=== PATIENT | female | born 1960 | race African-American/Black ===

== ENCOUNTER 2019-03-26 02:48 | Emergency (ER) | payer SELFPAY ==
[2019-03-26 03:09] VITALS: BMI 31.3
--- NOTE | 2019-03-26 03:38 | PDOC ---
History of Present Illness - General Chief Complaint: Headache Stated Complaint: HEADACHE,TREMBLING Time Seen by Provider: 03/26/19 03:38 History Source: Patient Exam Limitations: No Limitations - History of Present Illness Initial Comments: 58 year old female with no PMH presented to ED for headache x6 days. Pt reported her headache is left sided, intermittent, pounding, no alleviating or aggravating factors. She reported no light or sound sensitivity, denied neck pain, neck stiffness, fever, vomiting, nausea, chest pain, abdominal pain, shortness of breath, weakness, numbness, tingling, gait or visual changes. She reported she has not taken any pain medication for her headache. She reported she has not seen a PCP in 3 years as she does not have health insurance. ROS General: admitted to [facility]. denied fever, chills. HEENT: denied sore throat, rhinorrhea, ear pain. Cardiovascular: denied chest pain, palpitations, syncope, diaphoresis. Respiratory: denied shortness of breath, cough, sputum production, hemoptysis. Gastrointestinal: denied abdominal pain, nausea, vomiting, diarrhea, constipation, blood in stool. Genitourinary: denied dysuria, increased urinary frequency, hematuria, urinary incontinence, flank pain. Back: denied back pain. Musculoskeletal: denied joint pain, muscle pain, joint swelling. Neurological: admitted to headache. denied dizziness, numbness, tingling, weakness. Integumentary: denied rash, laceration, abrasion. Hematologic/Lymphatic: denied bruising or bleeding. PE Constitutional: Well-nourished, Well-developed, appearing stated age. HEENT: head is normocephalic, atraumatic. EOMI. PERRLA. Neck: supple. Full ROM. Cardiovascular: regular heart rhythm. no murmurs. no pericardial friction rub. Respiratory: clear to auscultation bilaterally. no crackles, rhonchi or wheezing. no stridor. Gastrointestinal: soft, nontender. normal bowel sounds. no rebound, guarding, masses. Extremities: peripheral pulses intact. no lower extremity edema. Neurological: alert. oriented x3. CN2-12 intact. 5/5 strength all extremities. normal ankle plantar flexion. full sensation all extremities and bilateral face. no ataxia. gait normal. Psych: awake, alert, oriented x3. follows commands. answers questions appropriately. Past History - Past Medical History Allergies/Adverse Reactions: Allergies Allergy/AdvReac Type Severity Reaction Status Date / Time No Known Allergies Allergy Verified 03/26/19 03:53 Home Medications: Ambulatory Orders Cephalexin Monohydrate [Keflex -] 500 mg PO BID 7 Days #14 capsule 03/26/19 - Psycho Social/Smoking Cessation Hx Smoking History: Never smoked Have you smoked in the past 12 months: No Information on smoking cessation initiated: No Hx Alcohol Use: No Drug/Substance Use Hx: No *Physical Exam - Vital Signs Last Vital Signs Temp Pulse Resp BP Pulse Ox 98.5 F 92 H 18 150/96 99 03/26/19 03:08 03/26/19 03:08 03/26/19 03:08 03/26/19 03:08 03/26/19 03:08 ED Treatment Course - LABORATORY CBC & Chemistry Diagram: 03/26/19 04:00 03/26/19 04:00 Medical Decision Making - Medical Decision Making 58 year old female with above PMH presented to ED for headache x6 days. Initial Vital Signs Temp Pulse Resp BP Pulse Ox 98.5 F 92 H 18 150/96 99 03/26/19 03:08 03/26/19 03:08 03/26/19 03:08 03/26/19 03:08 03/26/19 03:08 Afebrile. No tachycardia. No tachypnea. Hypertensive. No hypoxia on room air. Labs ordered: CBC, CMP, troponin, BNP, UA Imaging ordered: CT head Medications ordered: tylenol IV, reglan 10 mg IV once, normal saline bolus 1000 cc once Headache may be secondary to HTN, or headache may be causing HTN. Pt has not seen PCP in three years, may have developed HTN. 03/26/19 04:32 Dr. Cadena, radiologist from [facility], called to report normal head CT. 03/26/19 05:05 CT head report: Referring Physician: ANGEL NOBLE ADDENDUM Comments: John Cadena MD wrote on Mar 26, 2019 at 04:35 AM: Referring Physician: ANGEL SOSA This finding was verbally communicated to Dr. Catrina Valdes, doctor on ThuMarch 26 2019 04:32:57 EST. One or more of the following dose reduction techniques were used: automated exposure control, adjustment of the mA and/or kV according to patient size, use of iterative reconstructive technique. THIS DOCUMENT HAS BEEN ELECTRONICALLY SIGNED Cal Cadena MD 03/26/2019 04:33 FARHAT Lomas Please call Imaging Test Inspection Engineer [phone] with questions. John Cadena MD Comments: John Cadena MD wrote on Mar 26, 2019 at 04:26 AM: Referring Physician: ANGEL NOBLE Patient Name: JEFFREY SOSA THIS IS A PRELIMINARY REPORT FROM [facility] DATE OF SERVICE: 2019-03-26 04:06:30 IMAGES: [id number] EXAM: HEAD CT (STROKE) HISTORY: Left-sided headache COMPARISON: None. FINDINGS: The ventricular system is midline and nondilated. The sulcal pattern is normal for the patient's age. There is no bleed, mass, extra-axial fluid collection or mass effect. No skull fracture or skull lesion is identified. The visualized paranasal sinuses and mastoid air cells are clear. IMPRESSION: Normal exam. One or more of the following dose reduction techniques were used: automated exposure control, adjustment of the mA and/or kV according to patient size, use of iterative reconstructive technique THIS DOCUMENT HAS BEEN ELECTRONICALLY SIGNED Cal Cadena MD 03/26/2019 04:25 FARHAT Lomas Please call Imaging Test Inspection Engineer [phone] with questions. John Cadena MD Clinicians - Please contact Imaging Test Inspection Engineer with further questions at [phone] Patients - Please contact your Ordering Provider with questions. Laboratory Last Values WBC 5.6 K/mm3 (4.0-10.0) 03/26/19 04:00 RBC 4.97 M/mm3 (3.60-5.2) 03/26/19 04:00 Hgb 15.2 GM/dL (10.7-15.3) 03/26/19 04:00 Hct 45.3 % (32.4-45.2) H 03/26/19 04:00 MCV 91.2 fl (80-96) 03/26/19 04:00 MCH 30.6 pg (25.7-33.7) 03/26/19 04:00 MCHC 33.6 g/dl (32.0-36.0) 03/26/19 04:00 RDW 13.7 % (11.6-15.6) 03/26/19 04:00 Plt Count 252 K/MM3 (134-434) 03/26/19 04:00 MPV 8.0 fl (7.5-11.1) 03/26/19 04:00 Absolute Neuts (auto) 2.5 K/mm3 (1.5-8.0) 03/26/19 04:00 Neutrophils % 44.0 % (42.8-82.8) 03/26/19 04:00 Lymphocytes % 46.8 % (8-40) H 03/26/19 04:00 Monocytes % 6.1 % (3.8-10.2) 03/26/19 04:00 Eosinophils % 2.4 % (0-4.5) 03/26/19 04:00 Basophils % 0.7 % (0-2.0) 03/26/19 04:00 Nucleated RBC % 0 % (0-0) 03/26/19 04:00 Sodium 143 mmol/L (136-145) 03/26/19 04:00 Potassium 4.0 mmol/L (3.5-5.1) 03/26/19 04:00 Chloride 107 mmol/L (98-107) 03/26/19 04:00 Carbon Dioxide 28 mmol/L (21-32) 03/26/19 04:00 Anion Gap 9 MMOL/L (8-16) 03/26/19 04:00 BUN 8.2 mg/dL (7-18) 03/26/19 04:00 Creatinine 0.9 mg/dL (0.55-1.3) 03/26/19 04:00 Est GFR (CKD-EPI)AfAm 80.55 03/26/19 04:00 Est GFR (CKD-EPI)NonAf 69.50 03/26/19 04:00 Random Glucose 115 mg/dL (74-106) H 03/26/19 04:00 Calcium 9.3 mg/dL (8.5-10.1) 03/26/19 04:00 Total Bilirubin 0.4 mg/dL (0.2-1) 03/26/19 04:00 AST 18 U/L (15-37) 03/26/19 04:00 ALT 25 U/L (13-61) 03/26/19 04:00 Alkaline Phosphatase 93 U/L (45-117) 03/26/19 04:00 B-Natriuretic Peptide 25.4 pg/ml (5-125) 03/26/19 04:00 Total Protein 8.0 g/dl (6.4-8.2) 03/26/19 04:00 Albumin 4.3 g/dl (3.4-5.0) 03/26/19 04:00 Urine Color Yellow 03/26/19 04:00 Urine Appearance Clear 03/26/19 04:00 Urine pH 6.5 (5.0-8.0) 03/26/19 04:00 Ur Specific Marble 1.007 (1.010-1.035) L 03/26/19 04:00 Urine Protein Negative (NEGATIVE) 03/26/19 04:00 Urine Glucose (UA) Negative (NEGATIVE) 03/26/19 04:00 Urine Ketones Negative (NEGATIVE) 03/26/19 04:00 Urine Blood Negative (NEGATIVE) 03/26/19 04:00 Urine Nitrite Negative (NEGATIVE) 03/26/19 04:00 Urine Bilirubin Negative (NEGATIVE) 03/26/19 04:00 Urine Urobilinogen 0.2 mg/dL (0.2-1.0) 03/26/19 04:00 Ur Leukocyte Esterase 2+ (NEGATIVE) H 03/26/19 04:00 Urine WBC (Auto) 13 /hpf (0-5) 03/26/19 04:00 Urine RBC (Auto) 1 /hpf (0-4) 03/26/19 04:00 Urine Casts (Auto) 0 /lpf (0-8) 03/26/19 04:00 U Epithel Cells (Auto) 2.6 /HPF (0-5/HPF) 03/26/19 04:00 Urine Bacteria (Auto) 92.5 /hpf (NEGATIVE) 03/26/19 04:00 No leukocytosis. No anemia. No AMARILIS. No transaminitis. UTI. Medications ordered: Keflex 500 mg PO once Discharge - Discharge Information Problems reviewed: Yes Clinical Impression/Diagnosis: UTI (urinary tract infection), Headache Condition: Improved Disposition: HOME - Admission No - Additional Discharge Information Prescriptions: Cephalexin Monohydrate [Keflex -] 500 mg PO BID 7 Days #14 capsule - Follow up/Referral - Patient Discharge Instructions Patient Printed Discharge Instructions: DI for Urinary Tract Infection (UTI), DI for Headache Additional Instructions: Follow up with a primary care doctor within 3 days. Your care is not complete until you follow up. I have provided you with a referral to our Clinic system. I have prescribed you an antibiotic for your urinary tract infection. Take as advised on label. Do not stop early even if you are feeling better. Drink lots of fluids to stay hydrated. Take Tylenol over the counter for headache. Take as advised on label. Return to the Emergency Department for increasing pain, chest pain, shortness of breath, vomiting, fever, weakness, numbness, tingling, neck stiffness or any other new, worsening or concerning symptoms. - Post Discharge Activity Work/Back to School Note: Back to Work
--- NOTE | 2019-03-26 03:45 | PDOC ---
Attending Attestation - Resident Resident Name: Catrina Valdes - ED Attending Attestation I have performed the following: I have examined & evaluated the patient, The case was reviewed & discussed with the resident, I agree w/resident's findings & plan - HPI HPI: 03/26/19 06:18 Pt comes with headache that started yesterday. SHe never gets DUVALL so she went to [facility] . They examined patient and they told her to go home and take tylenol OTC. Pt states she went home and she drank water only. She decided that she would come here to get checked out. - Physicial Exam PE: 03/26/19 06:19 Afebrile. Neuro no gross focal deficits. Strength equal throughout. She has equal reflexes throughout SHe has HEENT normal Pt states that headache takes the whole head no pain extending to the cspine/ neck 03/26/19 06:21 Pt has no fevers. Pt has no flank pain heart and lungs normal no swelling of extremities. - Medical Decision Making 03/26/19 04:33 Referring Physician: ANGEL NOBLE Patient Name: JEFFREY SOSA THIS IS A PRELIMINARY REPORT FROM [facility] DATE OF SERVICE: 2019-03-26 04:06:30 IMAGES: [id number] EXAM: HEAD CT (STROKE) HISTORY: Left-sided headache COMPARISON: None. FINDINGS: The ventricular system is midline and nondilated. The sulcal pattern is normal for the patient's age. There is no bleed, mass, extra-axial fluid collection or mass effect. No skull fracture or skull lesion is identified. The visualized paranasal sinuses and mastoid air cells are clear. IMPRESSION: Normal exam 03/26/19 05:23 Labs are normal and pt will be treated for her UTI
[2019-03-26] MEDS ORDERED: SODIUM CHLORIDE 1,000 ML IV STA (03:46)
[2019-03-26] MEDS ORDERED: ACETAMINOPHEN 1000 MG/100 ML VIAL (NON FORMULARY) IVPB ONE (03:46)
[2019-03-26] MEDS ORDERED: METOCLOPRAMIDE HCL INJECTION 10 MG/2 ML VIAL IVPUSH ONE (03:46)
[2019-03-26 04:27] LABS: BASO % 0.7 % (0-2.0); EOS % 2.4 % (0-4.5); HEMATOCRIT 45.3 % (32.4-45.2); HEMOGLOBIN 15.2 GM/dL (10.7-15.3); LYMPH % 46.8 % (8-40); MCH 30.6 pg (25.7-33.7); MCHC 33.6 g/dl (32.0-36.0); MEAN CELL VOLUME 91.2 fl (80-96); MONO % 6.1 % (3.8-10.2); PLATELET COUNT 252 K/MM3 (134-434); RBC 4.97 M/mm3 (3.60-5.2); RDW 13.7 % (11.6-15.6); WHITE BLOOD COUNT 5.6 K/mm3 (4.0-10.0)
[2019-03-26] MEDS ORDERED: LIDOCAINE 5% TOPICAL PATCH TP ONE (04:30)
[2019-03-26 04:46] LABS: EPI CELLS 2.6 /HPF (0-5/HPF); HYALINE CASTS 0 /lpf (0-8); PH,URINE 6.5 (5.0-8.0); URINE APPEARANCE CLEAR; URINE BACTERIA 92.5 /hpf (NEGATIVE); URINE BILIRUBIN NEGATIVE (NEGATIVE); URINE COLOR YELLOW; URINE GLUCOSE (UA) NEGATIVE (NEGATIVE); URINE KETONE NEGATIVE (NEGATIVE); URINE LEUK ESTERASE 2+ (NEGATIVE); URINE NITRITE NEGATIVE (NEGATIVE); URINE PROTEIN NEGATIVE (NEGATIVE); URINE RBC 1 /hpf (0-4); URINE UROBILINOGEN 0.2 mg/dL (0.2-1.0); URINE WBC 13 /hpf (0-5)
[2019-03-26] MEDS ORDERED: METOCLOPRAMIDE HCL INJECTION 10 MG/2 ML VIAL ONE (04:47)
[2019-03-26] MEDS ORDERED: ACETAMINOPHEN INJECTION 100 ML IVPB ONE (04:48)
[2019-03-26 05:06] LABS: ALBUMIN 4.3 g/dl (3.4-5.0); BILIRUBIN,TOTAL 0.4 mg/dL (0.2-1); BLOOD UREA NITROGEN 8.2 mg/dL (7-18); CALCIUM 9.3 mg/dL (8.5-10.1); CREATININE 0.9 mg/dL (0.55-1.3)
[2019-03-26] MEDS ORDERED: CEPHALEXIN MONOHYDRATE 500 MG CAPSULE (UD) PO ONE (05:07)
[2019-03-26] MEDS ORDERED: CEPHALEXIN MONOHYDRATE 500 MG CAPSULE (UD) ONE (05:37)
[2019-03-26 06:28] VITALS: BP 142/90; PULSE 76; TEMP 98.9
--- NOTE | 2019-03-26 14:05 | EKG ---
Test Reason : Blood Pressure : / mmHG Vent. Rate : 058 BPM Atrial Rate : 058 BPM P-R Int : 166 ms QRS Dur : 074 ms QT Int : 412 ms P-R-T Axes : 060 018 027 degrees QTc Int : 404 ms SINUS BRADYCARDIA OTHERWISE NORMAL ECG NO PREVIOUS ECGS AVAILABLE Confirmed by LUANN LUIS MD ([id number]) on 03/26/2019 2:05:09 PM Referred By: Confirmed By:LUANN LUIS MD
[2019-03-26] MEDS ORDERED: LIDOCAINE PATCH REMOVAL MC SCH (17:00)
== END 2019-03-26 06:26 | disposition home or self-care (01) ==
LOC: JER 02:48
CPT/HCPCS: 36415; 70450-TC; 80053; 81003; 83880; 84484; 85025; 93005; 93010; 99283-25; J0131; J7030